=== PATIENT | male | born 1990 | race Caucasian/White ===

== ENCOUNTER 2020-06-07 09:50 | Outpatient (REF) | payer OTHER, SELFPAY | END 2020-06-07 09:51 | disposition home or self-care (01) | LOC: HO.LAB 09:50 | PROVIDERS: Visit Provider Internal Medicine | DX: Z20.828 Contact with and (suspected) exposure to other viral communicable diseases (principal) | CPT/HCPCS: 36415; C9803; U0003 ==

== ENCOUNTER 2025-01-02 12:34 | Emergency (ER) | payer OTHER, SELFPAY ==
--- NOTE | ~2025-01-02 | XR_ITS ---
EXAMINATION: XR CHEST CLINICAL INFORMATION: weakness COMPARISON: None available. TECHNIQUE: 2 views of the chest were obtained. FINDINGS: No consolidation pleural effusion or pneumothorax. Cardiomediastinal silhouette size is normal. Osseous structures are intact. XR/XR chest 2V IMPRESSION: Normal chest x-ray. Electronically signed by: Triston Sepulveda MD 01/02/2025 03:38 PM EDT
[2025-01-02 12:42] VITALS: BP 107/56; PULSE 110; RESP 16; TEMP 37.8; O2SAT 97; BMI 27.5
--- NOTE | 2025-01-02 12:58 | ED_ITS ---
HPI - General Adult General Chief complaint: Upper Respiratory Symptoms Stated complaint: sore throat, whole body hurts, headaches Time Seen by Provider: 01/02/25 14:56 Source: patient Mode of arrival: ambulatory Limitations: no limitations History of Present Illness ED Provider: HPI narrative: 34-year-old male, history of cocaine use, on 9 in the past 2 months presenting with generalized malaise, flu-like symptoms, sore throat. No chest pain no nausea or vomiting and diarrhea. Related Data Allergies Allergy/AdvReac Type Severity Reaction Status Date / Time No Known Allergies Allergy Verified 01/02/25 12:46 Review of Systems 2 Constitutional: Constitutional: Reports as per [facility] Social History Social History Advance Directives: No Advance Directives Information Provided: Yes Physical Exam ED Vital Signs: Vital Signs - 24 hr 01/02/25 12:42 01/02/25 15:19 Temperature 100.1 F 97.2 F Pulse Rate 110 H 96 Respiratory Rate 16 16 Blood Pressure 107/56 L 101/56 L Pulse Oximetry 97 96 Oxygen Delivery Method Room Air Room Air BMI result Body Mass Index 27.5 Const Other: * Gen: ?Overall well-appearing patient * HEENT: PERRLA, EOMI, MMM, uvula midline, no tonsillar exudates * Neck: Supple, no LAD * CV: RRR, no obvious murmurs appreciated * Resp: ?No wheezing rales rhonchi no stridor moving air well * Abd: ?Bowel sounds are present, no tenderness no rebound no rigidity * MSK: FROM, strength 5/5 all extremities * Skin: Warm, dry, intact, * Neuro: ?Alert and oriented x3, moving upper and lower extremities symmetrically, no obvious facial asymmetry noted Course Course Course Narrative: RME performed by Elissa Masters PA-C. Patient is a 34 year old assigned male at presenting to the emergency department with a sore throat. 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 Swabs ordered. Patient placed back in the waiting room pending room availability and results. Medications Administered Discontinued Medications Generic Name Dose Route Start Last Admin Trade Name Freq PRN Reason Stop Dose Admin Acetaminophen 975 mg 01/02/25 15:22 01/02/25 16:08 Acetaminophen 325 Mg Tablet PO 01/02/25 15:23 975 mg ONCE ONE Administration Dexamethasone 10 mg 08/04/25 15:10 01/02/25 16:08 Dexamethasone 2 Mg Tablet PO 01/02/25 15:11 10 mg ONCE ONE Administration Ketorolac Tromethamine 15 mg 01/02/25 15:10 01/02/25 16:09 Ketorolac Tromethamine 15 Mg/Ml Vial IM 01/02/25 15:11 15 mg ONCE ONE Administration Medical Decision Making Medical Decision Making MDM Narrative: Overall well-appearing, afebrile, we will obtain chest x-ray for evaluation of pneumonia however he does not have any focal lung findings, no pleurisy an ongoing chest pain to suspect PE no PE risk factors elicited, we will workup for viral infection, strep throat Differential Diagnosis Differential Diagnoses: The differential diagnosis associated with the presentation includes (Pneumonia, viral syndrome, tonsillitis, peritonsillar abscess, PE) Admission/Observation Consideration of admission/observation: Escalation of care including admission/observation considered (Not hypoxic, ) 2022 Emergency Medicine Coding Guide from [employer] on 01/02/2025 All calculations should be rechecked by clinician prior to use RESULT SUMMARY: 4 Estimated Level of Service Problems: Low (3) Risk: Moderate (4) Data: Extensive (5) NARRATIVE MDM: This patient's problem complexity is Low as patient: has >= acute, uncomplicated illness(es)/injuries. This patient's risk is Moderate due to: overall presentation requiring evaluation for a potentially Moderate-risk process. This patient's data complexity is Extensive due to: -multiple tests ordered/reviewed -independent historian used to support history -independent interpretation of imaging or EKG INPUTS: Number and Complexity ?> 10 = 3: acute uncomplicated illness/injury (j) Risk level ?> 3 = Moderate Tests ordered ?> 2 = 2 Tests results reviewed (excluding labs) ?> 2 = 2 Prior external notes reviewed ?> 0 = 0 Assessment requiring and independent historian ?> 1 = Yes Independent interpretation of tests ?> 1 = Yes Discussed management/test interpretation w/external professional ?> 0 = No Lab Data [facility] Lab Attestation statement: I reviewed the patient's lab results. 01/02/25 13:49 01/02/25 13:49 Labs: Lab Results 01/02/25 01/02/25 Range/Units 12:55 13:49 WBC 9.8 (4.8-10.8) X10*3/uL RBC 4.88 (4.60-5.80) X10*6/uL Hgb 14.8 (14.0-18.0) g/dl Hct 41.8 L (42.0-52.0) % MCV 85.7 (80.0-98.0) fL MCH 30.3 (27.0-33.0) pg MCHC 35.4 (31.0-36.0) g/dl RDW 12.2 (11.0-16.0) % Plt Count 184 (160-400) X10*3/uL MPV 9.8 (9.4-12.4) fL Immature Gran % (Auto) 0.3 (0.0-0.4) % Neut % (Auto) 84.3 H (45-73) % Lymph % (Auto) 8.6 L (20-40) % Bladen % (Auto) 6.7 (2-11) % Eos % (Auto) 0.0 (0-4) % Baso % (Auto) 0.1 (0-2) % Lymph # (Auto) 0.8 L (1.2-4.9) X10*3/uL Bladen # (Auto) 0.7 (0.1-1.2) X10*3/uL Eos # (Auto) 0.0 (0.0-0.4) X10*3/uL Baso # (Auto) 0.0 (0.0-0.2) X10*3/uL Abs Immat Gran (auto) 0.03 (0.00-0.03) X10*3/uL Absolute Neuts (auto) 8.3 (2.0-8.3) x10*3/uL Absolute Nucleated RBC 0.000 (0.0-0.012) X10*3/uL Nucleated RBC % (auto) 0.0 (0.0-0.2) /100WBC ESR 22 H (0-15) MM/HR Sodium 136 (135-145) mmol/L Potassium 3.9 (3.3-5.1) mmol/L Chloride 103 (96-108) mmol/L Carbon Dioxide 24 (22-29) mmol/L Anion Gap 13 (12-20) BUN 10 (9-16) mg/dL Creatinine 0.85 (0.5-1.4) mg/dL Estim Creat Clear Calc 97.1 Estimated GFR > 60 Random Glucose 97 (60-115) mg/dL Calcium 9.1 (8.4-10.2) mg/dL Total Bilirubin 0.8 (0.0-1.0) mg/dL AST 20 (5-37) U/L ALT 15 (0-40) U/L Alkaline Phosphatase 41 (39-117) U/L C-Reactive Protein 3.99 H (< or = 0.50) mg/dL Total Protein 7.6 (6.5-8.0) g/dL Albumin 4.6 (3.5-5.0) g/dL COVID-19 (LASHANDA) Negative (Negative) COVID-19 Clin Com See Note S. pyogenes GrpA MANAN Negative (Negative) Independent Interpretation I performed an independent interpretation of an: Plain X-Ray (My independent chest xray interpretation: Lungs: Lungs are clear bilaterally without evidence of focal consolidation, pleural effusion, or pneumothorax. Cardiac silhouette is unremarkable, no obvious mediastinal widening, no obvious bony abnormalities such as fractures. Impression: Normal chest X-r) Radiology Impression Discussion of test interpretation with radiology: I have reviewed the radiologist's reading. ( XR/XR chest 2V IMPRESSION: Normal chest x-ray) Prescription Management I considered prescription management with: Pain Medication and Antibiotic Chronic Conditions Patient?s care impacted by: Other (Tobacco smoker) Discharge Plan Discharge Clinical Impression: Viral syndrome Patient Disposition: Home, Self-Care Additional Instructions: You were evaluated with generalized malaise, you had a chest x-ray, viral swab, throat swab, you are likely running a fever, take Tylenol 975 mg every 6 hours needed for fevers, Motrin does better with body aches, stay well hydrated, rest at home for the next few days and return to work, your workup today has been reassuring no antibiotics indicated, I did give you anti-inflammatory medications in the ER. Referrals: Kevin Velasco MD [Primary Care Provider, Internal Medicine] - 2 weeks Stand Alone Forms: Work/School Release Print Language: Lebanese
[2025-01-02 13:12] LABS: IDNOW Serial# 55D5AD1C; Strep A Nucleic Acid Negative (Negative)
[2025-01-02 13:19] LABS: COVID-19 Test Negative (Negative); IDNOW Serial# 58CA691E
[2025-01-02 13:53] LABS: MANUAL DIFF FLAG NO
[2025-01-02 13:55] LABS: Hematocrit 41.8 % (42.0-52.0); Hemoglobin 14.8 g/dl (14.0-18.0); Imm Gran Abs Auto 0.03 X10*3/uL (0.00-0.03); Imm Gran Pct Auto 0.3 % (0.0-0.4); Lymphocytes Absolute Auto 0.8 X10*3/uL (1.2-4.9); Mean Corpuscular HGB Conc 35.4 g/dl (31.0-36.0); Mean Corpuscular Hemoglobin 30.3 pg (27.0-33.0); Mean Corpuscular Volume 85.7 fL (80.0-98.0); NRBC Abs Auto 0.000 X10*3/uL (0.0-0.012); NRBC Pct Auto 0.0 /100WBC (0.0-0.2); Platelet Count 184 X10*3/uL (160-400); Red Blood Count 4.88 X10*6/uL (4.60-5.80); White Blood Count 9.8 X10*3/uL (4.8-10.8)
[2025-01-02 14:17] LABS: Alanine Aminotransferase 15 U/L (0-40); Albumin Level 4.6 g/dL (3.5-5.0); Alkaline Phosphatase 41 U/L (39-117); Anion Gap 13 (12-20); Aspartate Amino Transferase 20 U/L (5-37); Blood Urea Nitrogen 10 mg/dL (9-16); Calcium 9.1 mg/dL (8.4-10.2); Carbon Dioxide 24 mmol/L (22-29); Chloride 103 mmol/L (96-108); Creatinine Clr Calc Pharmacy 97.1; Estimated Glomerular Filt Rate > 60; Potassium 3.9 mmol/L (3.3-5.1); Sodium 136 mmol/L (135-145); Total Protein 7.6 g/dL (6.5-8.0)
[2025-01-02 15:19] VITALS: BP 101/56; PULSE 96; RESP 16; TEMP 36.2; O2SAT 96
[2025-01-02 16:36] VITALS: BP 101/56; PULSE 96; RESP 16; TEMP 36.2; O2SAT 96
== END 2025-01-02 17:09 | disposition home or self-care (01) ==
PROVIDERS: Physician Assistant Medical; Emergency Provider Emergency Medicine; PCP Internal Medicine
DX: B34.9 Viral infection, unspecified (principal); R51.9 Headache, unspecified; J02.9 Acute pharyngitis, unspecified; Z79.899 Other long term (current) drug therapy
CPT/HCPCS: 36415; 71046; 80053; 85025; 85652; 86140; 87635; 87651; 96372; 99283; 99284; J1885; J8540

== ENCOUNTER → 2025-01-02 15:24 | Outpatient (BNV) | payer OTHER, SELFPAY | PROVIDERS: Emergency Provider Emergency Medicine; PCP Internal Medicine; Visit Provider Radiology Diagnostic Radiology | DX: J06.9 Acute upper respiratory infection, unspecified (principal) | CPT/HCPCS: 71046 ==